=== PATIENT | female | born 1950 | race African-American/Black ===

== ENCOUNTER 2016-12-07 20:47 | Emergency (ER) | payer MEDICARE ==
[~2016-12-07] VITALS: Ht 160 cm; Wt 85.7 kg
[2016-12-07] MEDS ORDERED: SODIUM CHLORIDE 0.9% 1,000 ML IV ONE (21:04)
[2016-12-07] MEDS ORDERED: ASPirin 81 mg TAB PO ONE (21:15)
[2016-12-07] MEDS ORDERED: MORPHINE SULF INJ 2 MG/ML SYRINGE 1ML IV ONE (21:15)
[2016-12-07] MEDS ORDERED: ONDANSETRON HCL 4 MG/2 ML VIAL IV ONE (21:15)
[2016-12-07] MEDS ORDERED: NITROGLYCERIN 0.4 MG SL TAB SL ONE ×2 (21:59→22:15)
[2016-12-07 22:04] LABS: Basophils # (auto) 0 uL; Basophils % (auto) 0.4 % (0.0-2.0); Eosinophils # (auto) 0.1 uL; Eosinophils % (auto) 1.1 % (0.0-7.0); Hemoglobin 13.1 g/dL (12.2-16.2); Lymphocytes # (auto) 1.5 uL; Lymphocytes % (auto) 24.2 % (10.0-50.0); Mean Corpuscular Hemoglobin 27.4 pg (28.0-32.0); Mean Corpuscular Hgb Conc. 33.6 g/dL (32.0-36.0); Mean Corpuscular Volume 81.4 fL (80.0-100.0); Mean Platelet Volume 8.9 fL (7.4-10.4); Monocytes # (auto) 0.4 uL; Monocytes % (auto) 5.9 % (0.0-12.0); Neutrophils # (auto) 4.3 uL; Neutrophils % (auto) 68.4 % (37.0-80.0); Platelet Count (auto) 248 10^3/uL (140-450); Red Cell Distribution Width 15.3 % (11.6-16.0); SUSPECT VIEW TRANSMISSION; White Blood Cell 6.4 10^3/uL (4.4-10.8)
[2016-12-07 22:16] LABS: INR 0.96 (0.9-1.15); Prothrombin Time 10.4 sec (9.37-12.3)
[2016-12-07 22:21] LABS: Albumin 3.6 g/dL (3.4-5.0); Anion Gap 9 (5-15); Aspartate Aminotransferase 20 U/L (15-37); BUN/Creatinine Ratio 18.7; Blood Urea Nitrogen 17 mg/dL (7-18); Calcium 9.4 mg/dL (8.5-10.1); Carbon Dioxide 27 mmol/L (21-32); Chloride 106 mmol/L (98-107); GFR African American 79 mL/min; GFR Non-African American 66 mL/min; Glucose 100 mg/dL (74-106); Magnesium 1.9 mg/dL (1.6-2.6); Sodium 142 mmol/L (136-145)
[2016-12-07 22:26] LABS: Alkaline Phosphatase 112 U/L (45-117); Bilirubin, Total 0.2 mg/dL (0.2-1.0); Total Protein 7.5 g/dL (6.4-8.2)
[2016-12-07] MEDS ORDERED: LORazepam 2MG/ML-1ML VIAL IV ONE (23:15)
[2016-12-07 23:18] VITALS: BP 135/71
[2016-12-07 23:19] LABS: B-Type Natriuretic Peptide 75.5 pg/mL (0-100); Temperature: 22.2 C (20.0-25.0)
[2016-12-08] MEDS ORDERED: NITROGLYCERIN 0.4 MG SL TAB SL ONE (10:00)
== END 2016-12-08 01:21 | disposition home or self-care (01) ==
LOC: ER 20:49
DX: R07.89 Other chest pain (principal); F41.9 Anxiety disorder, unspecified; J44.9 Chronic obstructive pulmonary disease, unspecified; E11.9 Type 2 diabetes mellitus without complications; R06.02 Shortness of breath; E78.5 Hyperlipidemia, unspecified; I10 Essential (primary) hypertension; F17.210 Nicotine dependence, cigarettes, uncomplicated; Z88.6 Allergy status to analgesic agent; Z88.1 Allergy status to other antibiotic agents
CPT/HCPCS: 36415; 71010; 80053; 83735; 83880; 84443; 84484; 85025; 85610; 85730; 94761; 96361; 96374; 99285; J2270; J2405